=== PATIENT | male | born 1940 ===

== ENCOUNTER 2016-10-08 09:57 | Observation (INO) | payer OTHER ==
[~2016-10-08] VITALS: Ht 177.8 cm; Wt 77.4 kg
[2016-10-08] MEDS ORDERED: PRAZ1CAP10 PO (10:31)
[2016-10-08] MEDS ORDERED: ASPI81TA28 PO (10:31)
[2016-10-08] MEDS ORDERED: PREG1CAP28 PO (10:31)
[2016-10-08] MEDS ORDERED: ATV/2 PO (10:31)
[2016-10-08] MEDS ORDERED: LPT10 PO (10:31)
[2016-10-08 10:49] LABS: MEAN CELL VOLUME 91.3 fL (80-100); MEAN CORPUSCULAR HEMOGLOBIN 30.9 pg (25-34); MEAN CORPUSCULAR HGB CONC 33.8 g/dl (32-36); MEAN PLATELET VOLUME 8.4 fL (7.4-10.4); PLATELET COUNT 215 K/uL (130-400); WHITE BLOOD COUNT 5.58 K/uL (4.8-10.8)
[2016-10-08 10:56] LABS: PARTIAL THROMBOPLASTIN RATIO 1.1; PROTHROMBIN TIME (PATIENT) 11.1 SECONDS (9.0-12.0)
[2016-10-08 10:59] LABS: ALT/SGPT 28 U/L (12-78); AST/SGOT 22 U/L (15-37); BLOOD UREA NITROGEN 13 mg/dl (7-18); BUN/CREATININE RATIO 13.9 (10-20); CALCIUM 8.4 mg/dl (8.5-10.1); CARBON DIOXIDE 29 mmol/L (21-32); CHLORIDE 108 mmol/L (98-107); CREATININE 0.92 mg/dl (0.60-1.40); GLUCOSE 88 mg/dl (70-99); POTASSIUM 4.2 mmol/L (3.5-5.1); SODIUM 141 mmol/L (136-145)
[2016-10-08] MEDS ORDERED: NITROGLYCERIN OINT 2% 1GM PACKET EXT ONE (11:00)
--- NOTE | 2016-10-08 11:01 | EMERGENCY ROOM VISIT NOTE ---
History Report prepared by Remberto: Hema Pinedo Under the Supervision of: Dr. aClista Lopez D.O. First contact with patient: 10:36 Chief Complaint: CHEST PAIN Stated Complaint: CHEST PRESSURE Nursing Triage Summary: Pt daughter states patient has chest pressure, dizziness intermittently since Saturday. Went to [facility] Saturday. He was told to go to ER but did not want to. Pain not going away. Pt c/o mid and left chest pain. Denies nausea. SOB with exertion. History of Present Illness The patient is a 76 year old male who presents to the Emergency Room with complaints of intermittent left sided chest pain for the past year and a half. He currently rates his discomfort as a 3-4/10 in severity. The patient additionally states that he has been having shortness of breath which is worsened with exertion, and is relieved with laying down. The patient additionally states that he has been sweaty occasionally especially at night, and he states that he has nightmares every night. He notes that he has intermittent tingling in his fingers and his feet bilaterally, and he has been having heaviness in his head and urinary frequency. The patient has a history of a triple bypass, and then afterwards he had two stents put in place. He states that last time he saw a mainframe systems administrator was a year ago. The patient states that he has not had any recent sickness, and he has chronic low blood pressure. He states that he used to take gabapentin after the CABG for pain that was thought to be from his incision, then more recently pregabalin, and also occasionally nitroglycerine which helps. States the pregabalin hasn't helped with the pain in the last several days. Pt denies leg swelling, headache, change in vision, fevers, nausea, vomiting, diarrhea, pain with urination, and melena. No recent change in meds and no recent trauma. Pt here visiting from [place] where he lives with family. The patient's daughter was assisting with translation and history. Source of History: patient Onset: a year and a half ago Position: chest (left) Symptom Intensity: 3-4/10 Timing: intermittent Modifying Factors (Worsening): exertion Modifying Factors (Relieving): other (laying down) Associated Symptoms: + SOB Note: Associated symptoms: tingling in his fingers and feet, sweatiness Review of Systems See HPI for pertinent positives & negatives. A total of 10 systems reviewed and were otherwise negative. Past Medical & Surgical Surgical Problems: (1) History of intravascular stent placement (2) Hx of CABG Social History Smoking Status: Former Smoker Marital Status: Housing Status: lives with family Occupation Status: retired Current/Historical Medications Scheduled Aspirin (Aspirin Ec), 81 MG PO DAILY Atorvastatin (Atorvastatin Calcium), 10 MG PO DAILY Lorazepam (Ativan), 2 MG PO HS Prazosin Hcl (Prazosin), 1 MG PO DAILY Pregabalin (Lyrica), 75 MG PO BID Allergies Coded Allergies: Oxazepam (Unverified Allergy, Unknown, ., 10/08/16) Physical Exam Vital Signs Date Time Temp Pulse Resp B/P (MAP) Pulse Ox O2 Delivery O2 Flow Rate FiO2 10/08/16 13:37 74 22 95 10/08/16 13:32 68 28 96 10/08/16 13:27 69 17 93 10/08/16 13:22 68 10/08/16 13:22 79 26 96 10/08/16 13:17 74 19 96 10/08/16 13:12 58 10 94 10/08/16 13:07 55 8 95 10/08/16 13:02 56 13 95 10/08/16 13:01 95/64 10/08/16 12:57 56 15 94 10/08/16 12:52 56 18 94 10/08/16 12:47 59 16 93 10/08/16 12:42 59 19 92 10/08/16 12:37 57 13 94 10/08/16 12:32 59 19 93 10/08/16 12:02 64 20 95 10/08/16 12:00 106/69 10/08/16 11:32 71 17 95 10/08/16 11:27 70 24 96 10/08/16 11:00 100/71 10/08/16 10:57 67 13 94 10/08/16 10:27 73 13 95 10/08/16 10:21 70 10/08/16 10:11 109/69 10/08/16 10:10 99 Room Air 10/08/16 10:06 95 Room Air 10/08/16 10:01 36.5 90 17 113/76 95 Room Air Physical Exam GENERAL: alert, well appearing, well nourished, no distress, non-toxic EYE EXAM: normal conjunctiva, PERRL and EOM's grossly intact OROPHARYNX: no exudate, no erythema, lips, buccal mucosa, and tongue normal and mucous membranes are moist NECK: supple, no nuchal rigidity, no adenopathy, non-tender LUNGS: Clear to auscultation. Normal chest wall mechanics HEART: no murmurs, S1 normal and S2 normal CHEST: Mild left sided reproducible chest pain ABDOMEN: abdomen soft, non-tender, normo-active bowel sounds, no masses, no rebound or guarding. BACK: Back is symmetrical on inspection and there is no deformity, no midline tenderness, no CVA tenderness. SKIN: no rashes and no bruising UPPER EXTREMITIES: upper extremities are grossly normal. LOWER EXTREMITIES: No pitting edema. NEURO EXAM: Normal sensorium, cranial nerves II-XII grossly intact, normal speech, no gross weakness of arms, no gross weakness of legs. Gross sensation intact. Medical Decision & Procedures ER Provider Diagnostic Interpretation: Radiology results have been interpreted by the radiologist and reviewed by me. CHEST ONE VIEW PORTABLE HISTORY: 76 years-old Male chest pain COMPARISON: None available TECHNIQUE: Portable AP view of the chest FINDINGS: Cardiac silhouette is upper limits of normal. There is evidence of prior median sternotomy. There is no pneumothorax, large pleural effusion or focal airspace consolidation. There is mild left diaphragmatic elevation. Hazy subsegmental left basilar opacities suggest atelectasis. The bones appear grossly intact. IMPRESSION: Subsegmental left basilar atelectasis with otherwise unremarkable exam. The above report was generated using voice recognition software. It may contain grammatical, syntax or spelling errors. Electronically signed by: Michael Boyle M.D. 10/08/2016 11:38 AM Dictated Date/Time: 10/08/2016 11:37 AM Laboratory Results 10/08/16 10:15 10/08/16 10:15 Test 10/08/16 10:15 10/08/16 10:27 Red Blood Count 4.60 M/uL (4.7-6.1) Mean Corpuscular Volume 91.3 fL (80-100) Mean Corpuscular Hemoglobin 30.9 pg (25-34) Mean Corpuscular Hemoglobin Concent 33.8 g/dl (32-36) RDW Standard Deviation 44.9 fL (36.4-46.3) RDW Coefficient of Variation 13.4 % (11.5-14.5) Mean Platelet Volume 8.4 fL (7.4-10.4) Prothrombin Time 11.1 SECONDS (9.0-12.0) Prothromb Time International Ratio 1.0 (0.9-1.1) Activated Partial Thromboplast Time 27.8 SECONDS (21.0-31.0) Partial Thromboplastin Ratio 1.1 Anion Gap 4.0 mmol/L (3-11) Est Creatinine Clear Calc Drug Dose 72.7 ml/min Estimated GFR () 94.6 Estimated GFR (Non- 81.6 BUN/Creatinine Ratio 13.9 (10-20) Calcium Level 8.4 mg/dl (8.5-10.1) Total Bilirubin 0.8 mg/dl (0.2-1) Aspartate Amino Transf (AST/SGOT) 22 U/L (15-37) Alanine Aminotransferase (ALT/SGPT) 28 U/L (12-78) Alkaline Phosphatase 109 U/L (45-117) Total Creatine Kinase 56 U/L (39-308) Pro-B-Type Natriuretic Peptide 80 pg/ml (0-900) Total Protein 7.0 gm/dl (6.4-8.2) Albumin 3.7 gm/dl (3.4-5.0) Globulin 3.3 gm/dl (2.5-4.0) Albumin/Globulin Ratio 1.1 (0.9-2) Bedside Troponin I < 0.030 ng/ml (0-0.045) Laboratory results per my review. Medications Administered Medications (Trade) Dose Ordered Sig/Kristy Route Start Time Stop Time Status Last Admin Dose Admin Nitroglycerin (Nitroglycerin 2% Oint) 1 inch NOW ONCE EXT 10/08/16 11:00 10/08/16 11:01 DC 10/08/16 11:50 1 INCH Sodium Chloride 1,000 ml @ 75 mls/hr [id number] IV 10/08/16 13:31 11/07/16 13:30 10/08/16 13:31 75 MLS/HR ECG Indication: chest pain Rate (beats per minute): 68 Rhythm: normal sinus Findings: no acute ischemic change, left axis deviation, no ectopy, other ( Normal intervals) ED Course 1036: The patient was evaluated in room C7. A complete history and physical exam was performed. 1100: Nitroglycerine 2% Oint 1 inch EXT 1221: I reevaluated the patient, and he states that the pain is better. He is comfortable with the treatment plan. 1233: I reviewed the patient's case with Dr. Guerra. He will evaluate the patient for further management. Medical Decision Differential diagnosis: Etiologies such as cardiac ischemia, aortic dissection, pulmonary embolism, pneumonia, pneumothorax, musculoskeletal, infections, pericarditis, myocarditis , esophageal rupture, gastrointestinal, as well as others were entertained. Given description of symptoms, concern for underlying angina. No significant GERD hx, no trauma, no change in activity. No improvement in pain with pregabalin, but some relief with nitro. Pt with accompanying concerning symptoms and all symptoms worse with exertion. Pt with known hx of CAD. Doubt PE, dissection, aaa, tamponade, effusion, infiltrate, pneumothorax, perf, GI bleed. First troponin negative and ekg without acute ischemic changes. HEART score 6 Medication Reconcilliation Current Medication List: was personally reviewed by me Blood Pressure Screening Patient's blood pressure: Normal blood pressure Consults Time Called: 1221 Consulting Physician: Dr. Guerra Returned Call: 1233 I reviewed the patient's case with Dr. Guerra. He will evaluate the patient for further management. Impression Primary Impression: Angina pectoris Additional Impressions: Chest pain Dyspnea on exertion Scribe Attestation The scribe's documentation has been prepared under my direction and personally reviewed by me in its entirety. I confirm that the note above accurately reflects all work, treatment, procedures, and medical decision making performed by me. Departure Information Dispostion Being Evaluated By Hospitalist Referrals No Doctor, Assigned (PCP) Patient Instructions My [facility] Problem Qualifiers Additional Impressions: Chest pain Chest pain type: chest pain due to myocardial ischemia Ischemic chest pain type: stable angina pectoris Qualified Codes: I20.8 - Other forms of angina pectoris
[2016-10-08 11:04] LABS: ALB/GLOB RATIO 1.1 (0.9-2); ALKALINE PHOSPHATASE 109 U/L (45-117)
--- NOTE | 2016-10-08 11:40 | DIAGNOSTIC IMAGING REPORT ---
CHEST ONE VIEW PORTABLE HISTORY: 76 years-old Male chest pain COMPARISON: None available TECHNIQUE: Portable AP view of the chest FINDINGS: Cardiac silhouette is upper limits of normal. There is evidence of prior median sternotomy. There is no pneumothorax, large pleural effusion or focal airspace consolidation. There is mild left diaphragmatic elevation. Hazy subsegmental left basilar opacities suggest atelectasis. The bones appear grossly intact. IMPRESSION: Subsegmental left basilar atelectasis with otherwise unremarkable exam. The above report was generated using voice recognition software. It may contain grammatical, syntax or spelling errors. Electronically signed by: Michael Boyle M.D. 10/08/2016 11:38 AM Dictated Date/Time: 10/08/2016 11:37 AM
[2016-10-08] MEDS: SODIUM CHLORIDE 0.9% 1000ML 1,000 ML IV SCH (13:31)
--- NOTE | 2016-10-08 13:39 | History and Physical ---
History & Physical Date & Time of Service: Oct 08, 2016 at 13:39 Chief Complaint: Chest Pressure Primary Care Physician: No Doctor, Assigned History of Present Illness Source: patient, family Patient is a 76 yr male with PMH of CAGB S/P stents X 2, Insomnia presents for evaluation of intermittent chest pain. Patient and her daughter reports that chest pain has been going on since last 11/2 years. Chest pain has been worsening lately. Pain is left sided, pressure like, intermittent, increases with exertion and decreases with rest, 3/10 intensity, non radiating. Associated with SOB on exertion and I have heaviness in my head". Reports chest pain got worse last Saturday but was reluctant to come to ED. Chest improved with NTG given in ED. Denies orthopnea, PND, leg swelling, abd pain, diarrhea, fever , chills, cough. Reports having a nightmares lately. Past Medical/Surgical History H/O CAD S/P CABG, stents X2 Family History Reviewed Social History Smoking Status: Former Smoker Alcohol Use: none Marital Status: Occupational Status: retired Allergies Coded Allergies: Oxazepam (Unverified Allergy, Unknown, ., 10/08/16) Home Medications Scheduled Aspirin (Aspirin Ec), 81 MG PO DAILY Atorvastatin (Atorvastatin Calcium), 10 MG PO DAILY Lorazepam (Ativan), 2 MG PO HS Prazosin Hcl (Prazosin), 1 MG PO DAILY Pregabalin (Lyrica), 75 MG PO BID Review of Systems See HPI for pertinent positives & negatives. A total of 10 systems reviewed and were otherwise negative. Physical Exam Vital Signs Date Time Temp Pulse Resp B/P (MAP) Pulse Ox O2 Delivery O2 Flow Rate FiO2 10/08/16 13:22 68 10/08/16 12:32 59 19 93 10/08/16 12:02 64 20 95 10/08/16 12:00 106/69 10/08/16 11:32 71 17 95 10/08/16 11:27 70 24 96 10/08/16 11:00 100/71 10/08/16 10:57 67 13 94 10/08/16 10:27 73 13 95 10/08/16 10:21 70 10/08/16 10:11 109/69 10/08/16 10:10 99 Room Air 10/08/16 10:06 95 Room Air 10/08/16 10:01 36.5 90 17 113/76 95 Room Air General Appearance: WD/WN, no apparent distress Head: normocephalic, atraumatic Eyes: normal inspection, PERRL, EOMI ENT: normal ENT inspection, hearing grossly normal Neck: supple, trachea midline Respiratory/Chest: chest non-tender, lungs clear, normal breath sounds, no respiratory distress, no accessory muscle use Cardiovascular: regular rate, rhythm, no edema, no murmur Abdomen/GI: normal bowel sounds, non tender, soft Back: normal inspection Extremities/Musculoskelatal: normal inspection, no pedal edema Neurologic/Psych: bricklayer paving brick II-XII nml as tested, no motor/sensory deficits, alert, normal mood/affect, normal reflexes, oriented x 3 Skin: normal color, warm/dry Diagnostics Laboratory Results Results Past 24 Hours Test 10/08/16 10:15 10/08/16 10:27 Range/Units White Blood Count 5.58 4.8-10.8 K/uL Red Blood Count 4.60 4.7-6.1 M/uL Hemoglobin 14.2 14.0-18.0 g/dL Hematocrit 42.0 42-52 % Mean Corpuscular Volume 91.3 80-100 fL Mean Corpuscular Hemoglobin 30.9 25-34 pg Mean Corpuscular Hemoglobin Concent 33.8 32-36 g/dl RDW Standard Deviation 44.9 36.4-46.3 fL RDW Coefficient of Variation 13.4 11.5-14.5 % Platelet Count 215 130-400 K/uL Mean Platelet Volume 8.4 7.4-10.4 fL Prothrombin Time 11.1 9.0-12.0 SECONDS Prothromb Time International Ratio 1.0 0.9-1.1 Activated Partial Thromboplast Time 27.8 21.0-31.0 SECONDS Partial Thromboplastin Ratio 1.1 Sodium Level 141 136-145 mmol/L Potassium Level 4.2 3.5-5.1 mmol/L Chloride Level 108 98-107 mmol/L Carbon Dioxide Level 29 21-32 mmol/L Anion Gap 4.0 3-11 mmol/L Blood Urea Nitrogen 13 7-18 mg/dl Creatinine 0.92 0.60-1.40 mg/dl Est Creatinine Clear Calc Drug Dose 72.7 ml/min Estimated GFR () 94.6 Estimated GFR (Non- 81.6 BUN/Creatinine Ratio 13.9 10-20 Random Glucose 88 70-99 mg/dl Calcium Level 8.4 8.5-10.1 mg/dl Total Bilirubin 0.8 0.2-1 mg/dl Aspartate Amino Transf (AST/SGOT) 22 15-37 U/L Alanine Aminotransferase (ALT/SGPT) 28 12-78 U/L Alkaline Phosphatase 109 45-117 U/L Total Creatine Kinase 56 39-308 U/L Creatine Kinase MB < 0.5 0.5-3.6 ng/ml Creatine Kinase MB Ratio 0-3.0 Pro-B-Type Natriuretic Peptide 80 0-900 pg/ml Total Protein 7.0 6.4-8.2 gm/dl Albumin 3.7 3.4-5.0 gm/dl Globulin 3.3 2.5-4.0 gm/dl Albumin/Globulin Ratio 1.1 0.9-2 Bedside Troponin I < 0.030 0-0.045 ng/ml Diagnostic Radiology CXR: Subsegmental left basilar atelectasis with otherwise unremarkable exam. EKG EKG:NSR, Low voltage, LAFB Impression Assessment and Plan Chest Pain: R/O ACS Risk factors: H/O CAD S/P CABG, Stents X2, Former tobacco use disorder Initial troponin:Negative EKG shows:No acute signs of Ischemia CXR: Unremarkable Last ECHO in 2009: EF:45-50% Trend serial cardiac enzymes, repeat EKG, fasting lipid panel in AM Continue Aspirin, statins Oxygen PRN Update ECHO Cardiology consulted H/O Insomnia: continue home meds Former Tobacco use disorder DVT Px: SCDs Disposition: Monitor in Tele VTE Prophylaxis VTE Risk Assessment Done? Y/N: Yes Risk Level: Low
[2016-10-08] MEDS ORDERED: ONDANSETRON INJ 2 MG/ML 2 ML VIAL IV PRN (13:45)
[2016-10-08] MEDS ORDERED: ACETAMINOPHEN 325 MG TAB PO PRN (13:45)
[2016-10-08] MEDS ORDERED: IV FLUIDS COMPLETED PRN (14:00)
[2016-10-08] MEDS ORDERED: ASPIRIN 81 MG CHEW PO STA (14:28)
[2016-10-08 15:21] VITALS: BP 104/65; PULSE 78; TEMP 36.4; O2SAT 94; Ht 177.8 cm; Wt 77.4 kg
[2016-10-08 16:00] VITALS: O2SAT 94
[2016-10-08] MEDS ORDERED: PNEUMOCOCCAL ADMINISTRATION CHARGE ONE (16:00)
[2016-10-08] MEDS ORDERED: PNEUMOCOCCAL POLYSACCHARIDES 25 MCG/0.5 ML VIAL/SYR IM. ONE (16:00)
--- NOTE | 2016-10-08 17:39 | CARDIOLOGY CONSULTATION ---
DATE OF CONSULTATION: 10/08/2016 REFERRING PHYSICIAN: Dr. Guerra. REASON FOR CONSULTATION: Chest pain. HISTORY OF PRESENT ILLNESS: Mr. Miller is a 76-year-old gentleman presents to the ER with intermittent chest discomfort for more than 1 year. The history was obtained through universal gis consultant on iPad at bedside. The patient states he has had chest pain since his heart surgery more than 14 years ago. He notes pain primarily at night. He describes a pressure and heaviness. He can reproduce his pain with exertion and activity at times. There is a chart history of shortness of breath with exertion. 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 Notes significant nightmares as well. Typically follows with a pay agent in [place], which is where his says permanent residence. Other cardiac procedures and testing had been performed in [facility] as well. Currently, the patient is chest pain free. His initial cardiac enzymes are negative. He states most recent stress test performed in [place] more than 1 year ago was reportedly normal. He states stents were implanted approximately 5 years after his initial bypass surgery; however, they did not change his chronic chest discomfort. Per review of records, it appears that bypass surgery was performed in 2003 with a BOO to the LAD and SVG to the mid LAD as well as an SVG to first diagonal branch vessel as well as an SVG to a ramus intermedius. According a catheterization which is not dated, but appears to have occurred after his surgery, his SVG to his OM/ramus was patent. He states there was an SVG to OM2 which was also patent and there is a stent in OM2 which is patent. The BOO was occluded and the EF was 50%. Currently, patient is resting comfortably without complaints. REVIEW OF SYSTEMS: The pertinent positives are noted per HPI. Also, intermittent diaphoresis and dyspnea reported. A comprehensive 10-system review is otherwise negative. PAST MEDICAL HISTORY: 1. Coronary artery disease with prior coronary artery bypass grafting x4. 2. PCI to the OM2. 3. Dyslipidemia. 4. Chronic hypotension. 5. GERD. PAST SURGICAL HISTORY: 1. Coronary stenting. 2. Coronary bypass grafting x4 - BOO to LAD (occluded) - SVG to apical LAD - SVG to OM - SVG to ramus or diagonal (not clear per review of records) SOCIAL HISTORY: Former tobacco abuse. He is here with his daughter who is a philosophy professor. ALLERGIES: OXAZEPAM. OUTPATIENT MEDICATIONS: 1. Aspirin 81 mg daily. 2. Atorvastatin 10 mg daily. 3. Lorazepam 2 mg at bedtime. 4. Prazosin 1 mg daily. 5. Lyrica 75 mg twice daily. IMAGING DATA: ECG on admission - normal sinus rhythm with low voltage QRS, left anterior fascicular block, R prime in V1. No significant ST changes. Chest x-ray on admission: Subsegmental left basilar atelectasis, otherwise normal exam. LABORATORY DATA: Cardiac enzymes are negative x2 sets. Sodium 141, potassium 4.2, chloride 108, CO2 is 29, BUN is 13, and creatinine is 0.92. White blood cell count 5.58, hemoglobin is 14.2, platelet count is 215. INR is 1.0. Telemetry demonstrates sinus rhythm. PHYSICAL EXAMINATION: VITAL SIGNS: Temperature 36.4 degrees Celsius, pulse 78 beats per minute and regular, respiratory rate is 18 breaths per minute, blood pressure 104/65, and SA02 is 94% on room air. GENERAL: NAD, awake, alert and oriented x3. THROAT: His mucous membranes are moist. No scleral icterus. Conjunctivae pink. NECK: Supple without JVD or HJR. No carotid bruit. HEART: Regular with a normal S1 and S2, no murmur, rub, or gallop. LUNGS: Clear without rales, rhonchi or wheeze. ABDOMEN: Soft, nontender. No rebound or guarding. Normal bowel sounds. EXTREMITIES: Warm and dry. There is no clubbing, cyanosis, or edema. NEUROLOGIC: Demonstrates no focal motor deficit. FINAL IMPRESSION: 1. A 76-year-old male with history of prior coronary artery bypass grafting x4 as well as obtuse marginal stenting, presents with chronic atypical resting chest discomfort and intermittent exertional chest discomfor. Initial evaluation including cardiac enzymes and electrocardiogram are within normal limits. 2. Dyslipidemia, tolerating low dose statin therapy. 3. Chronic borderline hypotension. 4. History of mildly reduced ejection fraction per review of records at 40-45% - patient appears compensated. PLAN AND RECOMMENDATIONS: Cardiac enzymes will be trended x3 sets. A complete resting 2D transthoracic echo will be performed to assess baseline systolic function, valvular integrity, as well as diastology. Tentative plan for dobutamine stress echocardiography in the a.m. if initial cardiac testing is within normal limits. Current cardiovascular medications will be continued as previously ordered. Will consider addition of low dose beta-nilsa therapy in the future. Thank you for allowing me to take part in the care of your patient. AGUSTÍN
[2016-10-08] MEDS: NITROGLYCERIN OINT 2% 1GM PACKET EXT SCH (17:55)
[2016-10-08 20:00] VITALS: BP 103/66; PULSE 61; TEMP 36.8; O2SAT 96
[2016-10-08 20:30] VITALS: O2SAT 96
[2016-10-08] MEDS: PREGABALIN 75 MG CAP PO SCH (20:49)
[2016-10-08] MEDS: LORAZEPAM 2 MG TAB PO SCH (20:49)
[2016-10-08] MEDS ORDERED: NURSING DECISION MEDICATION ORDER SCH (21:45)
[2016-10-08] MEDS ORDERED: COUGH DROP (SUGAR FREE) LOZ 24 LOZ/1 BOX PO PRN (21:45)
[2016-10-08 22:49] VITALS: BP 111/72; PULSE 60; TEMP 36.4; O2SAT 94
[2016-10-09 00:05] VITALS: O2SAT 94
[2016-10-09] MEDS ORDERED: NURSING DECISION MEDICATION ORDER SCH (04:00)
[2016-10-09 04:27] VITALS: BP 106/68; PULSE 60; TEMP 36.3; O2SAT 94
[2016-10-09] MEDS: SODIUM CHLORIDE 0.9% 1000ML 1,000 ML IV SCH ×2 (04:27→20:00)
[2016-10-09] MEDS: NITROGLYCERIN OINT 2% 1GM PACKET EXT SCH ×4 (06:15→18:00)
[2016-10-09 07:28] VITALS: BP 100/70; PULSE 61; TEMP 36.3; O2SAT 97
[2016-10-09 07:36] LABS: BASO % 0.2 %; BASO ABS # 0.01 K/uL (0-0.2); COMPLETE YES; EOS % 1.6 %; HEMATOCRIT 42.6 % (42-52); IG% 0.2 %; LYMPH % 38.2 %; LYMPH ABS # 2.45 K/uL (1.2-3.4); MEAN CELL VOLUME 92.4 fL (80-100); MEAN CORPUSCULAR HEMOGLOBIN 29.9 pg (25-34); MEAN CORPUSCULAR HGB CONC 32.4 g/dl (32-36); MEAN PLATELET VOLUME 8.2 fL (7.4-10.4); MONO % 10.1 %; NEUT % 49.7 %; PLATELET COUNT 211 K/uL (130-400); RED BLOOD COUNT 4.61 M/uL (4.7-6.1); WHITE BLOOD COUNT 6.41 K/uL (4.8-10.8)
[2016-10-09] MEDS: PREGABALIN 75 MG CAP PO SCH ×2 (07:49→21:29)
[2016-10-09 08:10] LABS: BUN/CREATININE RATIO 14.8 (10-20); CALCIUM 8.3 mg/dl (8.5-10.1); CREATININE 0.77 mg/dl (0.60-1.40); POTASSIUM 4.1 mmol/L (3.5-5.1)
[2016-10-09 08:13] LABS: ESTIMATED AVERAGE GLUCOSE 123 mg/dl; HA1C FLAG Normal (Normal)
[2016-10-09 08:20] LABS: CHOLESTEROL/HDL RATIO 2.9; THYROID STIMULATING HORMONE 2.98 uIu/ml (0.300-4.500)
--- NOTE | 2016-10-09 08:41 | Progress Note ---
Internal Med Progress Note Date of Service: Oct 09, 2016. Provider Documentation: SUBJECTIVE: Seen and examined at bedside Has chronic left sided pressure like sensation Denies SOB, dizziness, palpitations, nausea Offers no other complaints Planned for stress ECHO today OBJECTIVE: Vital Signs-as noted below Physical Exam: Vitals signs as noted above General Appearance:Moderately built and nourished Head: normocephalic, Atraumatic Eyes: normal inspection, EOMI, PERRL Neck: supple, Trachea midline Respiratory/Chest: Normal breath sounds, CTA Cardiovascular: S1, S2, No murmur Abdomen/GI:Soft, Non tender, Bowel sounds present Extremities/Musculoskelatal:normal inspection, no edema Neurologic/Psych:grossly no focal neurological deficits Skin: normal color, warm Lab data as noted below. ASSESSMENT & PLAN: Chest Pain: R/O ACS Risk factors: H/O CAD S/P CABG, Stents, Former tobacco use disorder Cardiac enzymes:Negative EKG: No acute signs of Ischemia CXR: Unremarkable Last ECHO in 2009: EF:45-50% Resting ECHO:pending Continue Aspirin, statins Appreciate Cardiology Input Planned for Stress test today H/O CAD S/P CABG: As above May need to add a beta nilsa and increase statin dosage prior to discharge A1C:5.9 Lipid panel, TSH:pending H/O Insomnia: continue home meds Former Tobacco use disorder DVT Px: SCDs Vital Signs: Date Time Temp Pulse Resp B/P (MAP) Pulse Ox O2 Delivery O2 Flow Rate FiO2 10/09/16 07:28 36.3 61 16 100/70 (80) 97 Room Air 10/09/16 04:27 36.3 60 18 106/68 (81) 94 Room Air 10/09/16 04:10 Room Air 10/09/16 00:05 94 Room Air 10/08/16 22:49 36.4 60 17 111/72 (85) 94 Room Air 10/08/16 20:30 96 Room Air 10/08/16 20:00 36.8 61 19 103/66 (78) 96 Room Air 10/08/16 16:00 94 Room Air 10/08/16 15:21 36.4 78 18 104/65 94 Room Air 10/08/16 14:51 36.5 71 15 93/63 94 10/08/16 14:42 71 15 94 10/08/16 14:12 67 15 94 10/08/16 14:00 93/63 10/08/16 13:42 62 18 94 10/08/16 13:37 74 22 95 10/08/16 13:32 68 28 96 10/08/16 13:27 69 17 93 10/08/16 13:22 68 10/08/16 13:22 79 26 96 10/08/16 13:17 74 19 96 10/08/16 13:12 58 10 94 10/08/16 13:07 55 8 95 10/08/16 13:02 56 13 95 10/08/16 13:01 95/64 10/08/16 12:57 56 15 94 10/08/16 12:52 56 18 94 10/08/16 12:47 59 16 93 10/08/16 12:42 59 19 92 10/08/16 12:37 57 13 94 10/08/16 12:32 59 19 93 10/08/16 12:02 64 20 95 10/08/16 12:00 106/69 10/08/16 11:32 71 17 95 10/08/16 11:27 70 24 96 10/08/16 11:00 100/71 10/08/16 10:57 67 13 94 10/08/16 10:27 73 13 95 10/08/16 10:21 70 10/08/16 10:11 109/69 10/08/16 10:10 99 Room Air 10/08/16 10:06 95 Room Air 10/08/16 10:01 36.5 90 17 113/76 95 Room Air Lab Results: Results Past 24 Hours Test 10/08/16 10:15 10/08/16 10:27 10/08/16 13:35 10/08/16 14:37 Range/Units White Blood Count 5.58 4.8-10.8 K/uL Red Blood Count 4.60 4.7-6.1 M/uL Hemoglobin 14.2 14.0-18.0 g/dL Hematocrit 42.0 42-52 % Mean Corpuscular Volume 91.3 80-100 fL Mean Corpuscular Hemoglobin 30.9 25-34 pg Mean Corpuscular Hemoglobin Concent 33.8 32-36 g/dl RDW Standard Deviation 44.9 36.4-46.3 fL RDW Coefficient of Variation 13.4 11.5-14.5 % Platelet Count 215 130-400 K/uL Mean Platelet Volume 8.4 7.4-10.4 fL Prothrombin Time 11.1 9.0-12.0 SECONDS Prothromb Time International Ratio 1.0 0.9-1.1 Activated Partial Thromboplast Time 27.8 21.0-31.0 SECONDS Partial Thromboplastin Ratio 1.1 Sodium Level 141 136-145 mmol/L Potassium Level 4.2 3.5-5.1 mmol/L Chloride Level 108 98-107 mmol/L Carbon Dioxide Level 29 21-32 mmol/L Anion Gap 4.0 3-11 mmol/L Blood Urea Nitrogen 13 7-18 mg/dl Creatinine 0.92 0.60-1.40 mg/dl Est Creatinine Clear Calc Drug Dose 72.7 ml/min Estimated GFR () 94.6 Estimated GFR (Non- 81.6 BUN/Creatinine Ratio 13.9 10-20 Random Glucose 88 70-99 mg/dl Calcium Level 8.4 8.5-10.1 mg/dl Total Bilirubin 0.8 0.2-1 mg/dl Aspartate Amino Transf (AST/SGOT) 22 15-37 U/L Alanine Aminotransferase (ALT/SGPT) 28 12-78 U/L Alkaline Phosphatase 109 45-117 U/L Total Creatine Kinase 56 39-308 U/L Creatine Kinase MB < 0.5 < 0.5 0.5-3.6 ng/ml Creatine Kinase MB Ratio 0-3.0 Pro-B-Type Natriuretic Peptide 80 0-900 pg/ml Total Protein 7.0 6.4-8.2 gm/dl Albumin 3.7 3.4-5.0 gm/dl Globulin 3.3 2.5-4.0 gm/dl Albumin/Globulin Ratio 1.1 0.9-2 Bedside Troponin I < 0.030 0-0.045 ng/ml Troponin I < 0.015 0-0.045 ng/ml Test 10/08/16 19:26 10/09/16 01:35 10/09/16 01:52 10/09/16 07:23 Range/Units Creatine Kinase MB < 0.5 < 0.5 < 0.5 0.5-3.6 ng/ml Creatine Kinase MB Ratio 0-3.0 Troponin I < 0.015 < 0.015 < 0.015 0-0.045 ng/ml White Blood Count 6.41 4.8-10.8 K/uL Red Blood Count 4.61 4.7-6.1 M/uL Hemoglobin 13.8 14.0-18.0 g/dL Hematocrit 42.6 42-52 % Mean Corpuscular Volume 92.4 80-100 fL Mean Corpuscular Hemoglobin 29.9 25-34 pg Mean Corpuscular Hemoglobin Concent 32.4 32-36 g/dl Platelet Count 211 130-400 K/uL Mean Platelet Volume 8.2 7.4-10.4 fL Neutrophils (%) (Auto) 49.7 % Lymphocytes (%) (Auto) 38.2 % Monocytes (%) (Auto) 10.1 % Eosinophils (%) (Auto) 1.6 % Basophils (%) (Auto) 0.2 % Neutrophils # (Auto) 3.19 1.4-6.5 K/uL Lymphocytes # (Auto) 2.45 1.2-3.4 K/uL Monocytes # (Auto) 0.65 0.11-0.59 K/uL Eosinophils # (Auto) 0.10 0-0.5 K/uL Basophils # (Auto) 0.01 0-0.2 K/uL RDW Standard Deviation 45.2 36.4-46.3 fL RDW Coefficient of Variation 13.4 11.5-14.5 % Immature Granulocyte % (Auto) 0.2 % Immature Granulocyte # (Auto) 0.01 0.00-0.02 K/uL Sodium Level 143 136-145 mmol/L Potassium Level 4.1 3.5-5.1 mmol/L Chloride Level 110 98-107 mmol/L Carbon Dioxide Level 27 21-32 mmol/L Anion Gap 6.0 3-11 mmol/L Blood Urea Nitrogen 11 7-18 mg/dl Creatinine 0.77 0.60-1.40 mg/dl Est Creatinine Clear Calc Drug Dose 86.9 ml/min Estimated GFR () 103.6 Estimated GFR (Non- 89.4 BUN/Creatinine Ratio 14.8 10-20 Random Glucose 85 70-99 mg/dl Estimated Average Glucose 123 mg/dl Hemoglobin A1c 5.9 4.5-5.6 % Calcium Level 8.3 8.5-10.1 mg/dl Triglycerides Level 101 0-150 mg/dl Cholesterol Level 149 0-200 mg/dl HDL Cholesterol 52 mg/dl LDL Cholesterol, Calculated 77 mg/dl VLDL Cholesterol, Calculated 20 mg/dl Cholesterol/HDL Ratio 2.9 Thyroid Stimulating Hormone (TSH) 2.980 0.300-4.500 uIu/ml
[2016-10-09] MEDS ORDERED: PRAZOSIN HCL 1 MG CAP PO SCH (09:00)
[2016-10-09] MEDS ORDERED: ASPIRIN 81 MG ECTAB PO SCH ×2 (09:00→21:00)
[2016-10-09] MEDS ORDERED: ATORVASTATIN 10 MG TAB PO SCH (09:00)
[2016-10-09] MEDS ORDERED: DOBUTamine HCL 12.5 MG/ML 20 ML VIAL ONE (11:00)
[2016-10-09] MEDS ORDERED: METOPROLOL TARTRATE 1 MG/ML VIAL ONE (11:00)
[2016-10-09] MEDS ORDERED: ATROPINE SULFATE 0.1 MG/ML 5ML SYR ONE (11:00)
[2016-10-09] MEDS ORDERED: PERFLUTREN LIPID MICROSPHERE (DEFINITY) IV ONE (11:19)
--- NOTE | 2016-10-09 12:41 | Cardiology Follow-Up ---
Subjective General Date of Service: Oct 09, 2016. Pt evaluation today including: conversation w/ patient, conversation w/ family , physical exam, chart review, lab review, review of studies, review of inpatient medication list History of Present Illness The patient is a 76 year old male seen in follow up after stress testing. Stress test borderline positive for inducible ischemia. Patient reproduced anginal symptoms with exercise. Currently pain-free. See stress report for details. Allergies Coded Allergies: Oxazepam (Unverified Allergy, Unknown, ., 10/08/16) Social History Smoking Status: Former Smoker Hx Alcohol Use - Type And Amou: No Hx Substance Use - Type And Am: No Problem List Medical Problems: (1) Angina pectoris Status: Acute Review of Systems Respiratory: + dyspnea on exertion, No cough, No sputum, No wheezing, No shortness of breath, No dyspnea at rest, No hemoptysis Cardiac: + chest pain, No orthopnea, No PND, No edema, No claudication, No palpitations Physical Exam Vital Signs Last Vital Signs Documentation Date Time Temp Pulse Resp B/P (MAP) Pulse Ox O2 Delivery O2 Flow Rate FiO2 10/09/16 08:00 Room Air 10/09/16 07:28 36.3 61 16 100/70 (80) 97 Physical Exam Constitutional: General Apperance: heathly-appearing Level of Distress: NAD Head: normocephalic, atraumatic ENMT: normal ENT inspection Lungs: Auscultation: breath sounds normal, no wheezing, no rales/crackles, no rhonchi Cardiovascular: Heart Auscultation: RRR, normal S1, normal S2, no murmurs Abdomen: Bowel Sounds: normal Inspection & Palpation: soft, non-distended, no tenderness, guarding & rebound, no masses Liver: non-tender Musculoskeletal: normal, normal strength (5/5 throughout) Extremities: no cyanosis, no edema, no clubbing, no ulcers Neurologic: Gait & Station: pertinent finding (no focal motor deficit.) Cranial Nerves: grossly intact Assessment and Plan Assessment and Plan FINAL IMPRESSION: 1. Exercise stress echo borderline positive for inducible ischemia with reproduction of anginal symptoms with exercise. -No regional wall motion abnormalities identified on technically limited study -LV function did not improve post exercise 2. History of prior coronary artery bypass grafting x4 as well as obtuse marginal stenting -BOO occlusion per prior cath report 3. Dyslipidemia, tolerating low dose statin therapy. 4. Chronic borderline hypotension. 5. History of mildly reduced ejection fraction per review of records at 40-45% - patient appears compensated. PLAN AND RECOMMENDATIONS: I had a long discussion with the patient and his daughter regarding further evaluation of his anginal symptoms. Recommend cardiac catheterization with coronary and bypass graft angiography. But the patient and his daughter are agreeable. Will add low-dose beta nisla and titrate atorvastatin to 40 mg daily. Aspirin will be continued as previously ordered. Case discussed with informatics consultant at [facility]. Patient accepted for transfer. Laboratory Results Last 24 Hours Test 10/08/16 13:35 10/08/16 14:37 10/08/16 19:26 10/09/16 01:35 Creatine Kinase MB Ratio Creatine Kinase MB < 0.5 ng/ml < 0.5 ng/ml Troponin I < 0.015 ng/ml < 0.015 ng/ml Test 10/09/16 01:52 10/09/16 07:23 Creatine Kinase MB < 0.5 ng/ml < 0.5 ng/ml Troponin I < 0.015 ng/ml < 0.015 ng/ml White Blood Count 6.41 K/uL Red Blood Count 4.61 M/uL Hemoglobin 13.8 g/dL Hematocrit 42.6 % Mean Corpuscular Volume 92.4 fL Mean Corpuscular Hemoglobin 29.9 pg Mean Corpuscular Hemoglobin Concent 32.4 g/dl Platelet Count 211 K/uL Mean Platelet Volume 8.2 fL Neutrophils (%) (Auto) 49.7 % Lymphocytes (%) (Auto) 38.2 % Monocytes (%) (Auto) 10.1 % Eosinophils (%) (Auto) 1.6 % Basophils (%) (Auto) 0.2 % Neutrophils # (Auto) 3.19 K/uL Lymphocytes # (Auto) 2.45 K/uL Monocytes # (Auto) 0.65 K/uL Eosinophils # (Auto) 0.10 K/uL Basophils # (Auto) 0.01 K/uL RDW Standard Deviation 45.2 fL RDW Coefficient of Variation 13.4 % Immature Granulocyte % (Auto) 0.2 % Immature Granulocyte # (Auto) 0.01 K/uL Sodium Level 143 mmol/L Potassium Level 4.1 mmol/L Chloride Level 110 mmol/L Carbon Dioxide Level 27 mmol/L Anion Gap 6.0 mmol/L Blood Urea Nitrogen 11 mg/dl Creatinine 0.77 mg/dl Est Creatinine Clear Calc Drug Dose 86.9 ml/min Estimated GFR () 103.6 Estimated GFR (Non- 89.4 BUN/Creatinine Ratio 14.8 Random Glucose 85 mg/dl Estimated Average Glucose 123 mg/dl Hemoglobin A1c 5.9 % Calcium Level 8.3 mg/dl Creatine Kinase MB Ratio Triglycerides Level 101 mg/dl Cholesterol Level 149 mg/dl HDL Cholesterol 52 mg/dl LDL Cholesterol, Calculated 77 mg/dl VLDL Cholesterol, Calculated 20 mg/dl Cholesterol/HDL Ratio 2.9 Thyroid Stimulating Hormone (TSH) 2.980 uIu/ml
--- NOTE | 2016-10-09 14:41 | EXERCISE STRESS ECHO ---
*NOTICE TO RECEIVING REPUBLICAN AGENCY This information is strictly Confidential and protected under [place] law. [place] law prohibits you from making any further disclosure of this information unless further disclosure is expressly permitted by the written consent of the person to whom it pertains or is authorized by law. A general authorization for the release of medical or other information is not sufficient for this purpose. Hospital accepts no responsibility if the information is made available to any other person, INCLUDING THE PATIENT. Interpretation Summary * Name: TONYA STEVENSON Study Date: 10/09/2016 09:58 AM BP: 96/71 mmHg * Patient Location: [facility] HR: 73 * : 1940 (M/d/yyyy) Gender: Male Height: 70 in * Age: 76 yrs Ethnicity: DC Weight: 170 lb * Ordering Physician: James Hill * Referring Physician: Lai Dumont * Performed By: Jana Chapman RCS * * Reason For Study: CHEST PAIN * BSA: 1.9 m2 * Technically difficult and limited study with poor acoustic apical stress images. * Exercise stress echo is borderline positive for inducible ischemia. * Left ventricular function remained unchanged with stress with reproduction of anginal symptoms at low level of exercise. * -- Conclusions -- * Ejection Fraction = 50-55%. * There is mild concentric left ventricular hypertrophy. * No significant valvular pathology. Procedure Details * ECHOEX, CPT #[id number] * ECHO COLOR FLOW, CPT #[id number] * ECHO DOPPLER, CPT #[id number] * The study was technically difficult with many images being suboptimal in quality. * A contrast injection of Definity was performed to improve assessment of LV function. * Contrast was injected into an intravenous site in the right arm. * One vial of Definity ultrasound contrast was diluted in normal saline to a total volume of 10 ml. A total of '5' ml of solution was administered during imaging. * Lot # [id number] of Definity utilized for procedure. * Expiration date OCT 05. * The attending nurse who injected the contrast agent was OCTAVIANO MCKNIGHT CPL, RN. Left Ventricle * The left ventricle is normal in size. * There is mild concentric left ventricular hypertrophy. * Ejection Fraction = 50-55%. * There is borderline global hypokinesis of the left ventricle. Atria * The left atrium is mildly dilated. * Right atrial size is normal. * A patent foramen ovale is suspected. Mitral Valve * The mitral valve anatomy is normal. * There is no mitral valve stenosis. * Significant mitral regurgitation is absent. Tricuspid Valve * The tricuspid valve anatomy is normal. * There is no tricuspid stenosis. * There is trace tricuspid regurgitation. Aortic Valve * The aortic valve is not well visualized. * No hemodynamically significant valvular aortic stenosis. * No aortic regurgitation is present. Pulmonic Valve * The pulmonary valve is inadequately visualized, but the Doppler data is adequate for interpretation. * Trace pulmonic valvular regurgitation. Great Vessels * The aortic root is normal size. Pericardium * There is no pericardial effusion. Stress Parameters * The stress portion of this study was personally supervised by the undersigned interpreting physician. * Rest heart rate was '73' BPM. * Rest blood pressure was '96/71' * Maximum heart rate was 86 % of maximum age-predicted heart rate. * Maximum blood pressure was '125/78' * Maximum heart rate achieved was 127 bpm. * Total exercise time was '04:01' * Maximum exercise MET level achieved was '5.80' METS * Maximum treadmill speed was '2.50' miles per hour. * Maximum treadmill elevation was '12.00'% grade. MMode 2D Measurements and Calculations IVSd 1.2 cm IVSs 1.4 cm LVIDd 4.5 cm LVIDs 3.2 cm LVPWd 1.2 cm LVPWs 1.3 cm IVS/LVPW 0.98 FS 28.6 % EDV(Teich) 91.4 ml ESV(Teich) 40.9 ml EF(Teich) 55.3 % EDV(cubed) 89.8 ml ESV(cubed) 32.7 ml EF(cubed) 63.6 % % IVS thick 23.2 % % LVPW thick 10.8 % LV mass(C)d 187.5 grams LV mass(C)dI 96.3 grams/m\S\2 LV mass(C)s 145.4 grams LV mass(C)sI 74.6 grams/m\S\2 SV(Teich) 50.5 ml SI(Teich) 25.9 ml/m\S\2 SV(cubed) 57.1 ml SI(cubed) 29.3 ml/m\S\2 Ao root diam 3.4 cm Ao root area 9.0 cm\S\2 LA dimension 2.6 cm LA/Ao 0.77 LVOT diam 2.0 cm LVOT area 3.1 cm\S\2 Doppler Measurements and Calculations Ao V2 max 76.1 cm/sec Ao max PG 2.3 mmHg Ao max PG (full) 1.1 mmHg LEESA(V,A) 2.3 cm\S\2 LEESA(V,D) 2.3 cm\S\2 LV V1 max PG 1.2 mmHg LV V1 max 55.9 cm/sec PA V2 max 102.4 cm/sec PA max PG 4.2 mmHg PI max kleber 194.2 cm/sec PI max PG 15.1 mmHg PI dec slope 142.3 cm/sec\S\2 PI P1/2t 399.8 msec TR max lkeber 209.3 cm/sec
--- NOTE | 2016-10-09 14:45 | EXERCISE STRESS ECHO ---
*NOTICE TO RECEIVING LIBERTARIAN AGENCY This information is strictly Confidential and protected under [place] law. [place] law prohibits you from making any further disclosure of this information unless further disclosure is expressly permitted by the written consent of the person to whom it pertains or is authorized by law. A general authorization for the release of medical or other information is not sufficient for this purpose. Hospital accepts no responsibility if the information is made available to any other person, INCLUDING THE PATIENT. Interpretation Summary * Name: TONYA STEVENSON Study Date: 10/09/2016 09:58 AM BP: 96/71 mmHg * Patient Location: [facility] HR: 73 * : 1940 (M/d/yyyy) Gender: Male Height: 70 in * Age: 76 yrs Ethnicity: DC Weight: 170 lb * Ordering Physician: James Hill * Referring Physician: Lai Dumont * Performed By: Jana Chapman RCS * * Reason For Study: CHEST PAIN * BSA: 1.9 m2 * Technically difficult and limited study with poor acoustic apical stress images. * Exercise stress echo is borderline positive for inducible ischemia. * Left ventricular function remained unchanged with stress with reproduction of anginal symptoms at low level of exercise. * Exercise capacity is below average. * -- Conclusions -- * Ejection Fraction = 50-55%. * There is mild concentric left ventricular hypertrophy. * No significant valvular pathology. Procedure Details * ECHOEX, CPT #[id number] * ECHO COLOR FLOW, CPT #[id number] * ECHO DOPPLER, CPT #[id number] * The study was technically difficult with many images being suboptimal in quality. * A contrast injection of Definity was performed to improve assessment of LV function. * Contrast was injected into an intravenous site in the right arm. * One vial of Definity ultrasound contrast was diluted in normal saline to a total volume of 10 ml. A total of '5' ml of solution was administered during imaging. * Lot # [id number] of Definity utilized for procedure. * Expiration date OCT 05. * The attending nurse who injected the contrast agent was OCTAVIANO MCKNIGHT CPL, RN. Left Ventricle * The left ventricle is normal in size. * There is mild concentric left ventricular hypertrophy. * Ejection Fraction = 50-55%. * There is borderline global hypokinesis of the left ventricle. Atria * The left atrium is mildly dilated. * Right atrial size is normal. * A patent foramen ovale is suspected. Mitral Valve * The mitral valve anatomy is normal. * There is no mitral valve stenosis. * Significant mitral regurgitation is absent. Tricuspid Valve * The tricuspid valve anatomy is normal. * There is no tricuspid stenosis. * There is trace tricuspid regurgitation. Aortic Valve * The aortic valve is not well visualized. * No hemodynamically significant valvular aortic stenosis. * No aortic regurgitation is present. Pulmonic Valve * The pulmonary valve is inadequately visualized, but the Doppler data is adequate for interpretation. * Trace pulmonic valvular regurgitation. Great Vessels * The aortic root is normal size. Pericardium * There is no pericardial effusion. Stress Parameters * The baseline ECG displays normal sinus rhythm. * Stress ECG: no signficant ST changes with occasional PVC's and ventricular couplets at higher levels of exertion. * The stress portion of this study was personally supervised by the undersigned interpreting physician. * Rest heart rate was '73' BPM. * Rest blood pressure was '96/71' * Maximum heart rate was 86 % of maximum age-predicted heart rate. * Maximum blood pressure was '125/78' * Maximum heart rate achieved was 127 bpm. * Total exercise time was '04:01' * Maximum exercise MET level achieved was '5.80' METS * Maximum treadmill speed was '2.50' miles per hour. * Maximum treadmill elevation was '12.00'% grade. * Normal blood pressure response to exercise. MMode 2D Measurements and Calculations IVSd 1.2 cm IVSs 1.4 cm LVIDd 4.5 cm LVIDs 3.2 cm LVPWd 1.2 cm LVPWs 1.3 cm IVS/LVPW 0.98 FS 28.6 % EDV(Teich) 91.4 ml ESV(Teich) 40.9 ml EF(Teich) 55.3 % EDV(cubed) 89.8 ml ESV(cubed) 32.7 ml EF(cubed) 63.6 % % IVS thick 23.2 % % LVPW thick 10.8 % LV mass(C)d 187.5 grams LV mass(C)dI 96.3 grams/m\S\2 LV mass(C)s 145.4 grams LV mass(C)sI 74.6 grams/m\S\2 SV(Teich) 50.5 ml SI(Teich) 25.9 ml/m\S\2 SV(cubed) 57.1 ml SI(cubed) 29.3 ml/m\S\2 Ao root diam 3.4 cm Ao root area 9.0 cm\S\2 LA dimension 2.6 cm LA/Ao 0.77 LVOT diam 2.0 cm LVOT area 3.1 cm\S\2 Doppler Measurements and Calculations Ao V2 max 76.1 cm/sec Ao max PG 2.3 mmHg Ao max PG (full) 1.1 mmHg LEESA(V,A) 2.3 cm\S\2 LEESA(V,D) 2.3 cm\S\2 LV V1 max PG 1.2 mmHg LV V1 max 55.9 cm/sec PA V2 max 102.4 cm/sec PA max PG 4.2 mmHg PI max kleber 194.2 cm/sec PI max PG 15.1 mmHg PI dec slope 142.3 cm/sec\S\2 PI P1/2t 399.8 msec TR max kleber 209.3 cm/sec
--- NOTE | 2016-10-09 15:22 | Discharge Summary ---
Discharge Summary Date of Service Oct 09, 2016. Discharge Summary Admission Date: Oct 08, 2016 at 13:40 Discharge Date: Oct 09, 2016 Discharge Disposition: Acute care facility Principal Diagnosis: Symptomatic CAD with H/O CABG and Positive DSE Secondary Diagnoses/Problems: Please see H&P and Hospital progress note Procedures: DSE Consultations: Cardiology Admission Information HPI (per Admitting provider): Patient is a 76 yr male with PMH of CAGB S/P stents X 2, Insomnia presents for evaluation of intermittent chest pain. Patient and her daughter reports that chest pain has been going on since last 11/2 years. Chest pain has been worsening lately. Pain is left sided, pressure like, intermittent, increases with exertion and decreases with rest, 3/10 intensity, non radiating. Associated with SOB on exertion and I have heaviness in my head". Reports chest pain got worse last Saturday but was reluctant to come to ED. Chest improved with NTG given in ED. Denies orthopnea, PND, leg swelling, abd pain, diarrhea, fever , chills, cough. Reports having a nightmares lately. Past Medical/Surgical History H/O CAD S/P CABG, stents X2 Family History Reviewed Social History Smoking Status: Former Smoker Alcohol Use: none Marital Status: Occupational Status: retired Allergies Coded Allergies: Oxazepam (Unverified Allergy, Unknown, ., 10/08/16) Home Medications Scheduled Aspirin (Aspirin Ec), 81 MG PO DAILY Atorvastatin (Atorvastatin Calcium), 10 MG PO DAILY Lorazepam (Ativan), 2 MG PO HS Prazosin Hcl (Prazosin), 1 MG PO DAILY Pregabalin (Lyrica), 75 MG PO BID Review of Systems See HPI for pertinent positives & negatives. A total of 10 systems reviewed and were otherwise negative. Physical Ex - H&P Physical Exam Vital Signs Date Time Temp Pulse Resp B/P (MAP) Pulse Ox O2 Delivery O2 Flow Rate FiO2 10/08/16 13:22 68 10/08/16 12:32 59 19 93 10/08/16 12:02 64 20 95 10/08/16 12:00 106/69 10/08/16 11:32 71 17 95 10/08/16 11:27 70 24 96 10/08/16 11:00 100/71 10/08/16 10:57 67 13 94 10/08/16 10:27 73 13 95 10/08/16 10:21 70 10/08/16 10:11 109/69 10/08/16 10:10 99 Room Air 10/08/16 10:06 95 Room Air 10/08/16 10:01 36.5 90 17 113/76 95 Room Air General Appearance: WD/WN, no apparent distress Head: normocephalic, atraumatic Eyes: normal inspection, PERRL, EOMI ENT: normal ENT inspection, hearing grossly normal Neck: supple, trachea midline Respiratory/Chest: chest non-tender, lungs clear, normal breath sounds, no respiratory distress, no accessory muscle use Cardiovascular: regular rate, rhythm, no edema, no murmur Abdomen/GI: normal bowel sounds, non tender, soft Back: normal inspection Extremities/Musculoskelatal: normal inspection, no pedal edema 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, no motor/sensory deficits, alert, normal mood/affect, normal reflexes, oriented x 3 Skin: normal color, warm/dry Diagnostics - H&P Diagnostics Laboratory Results Results Past 24 Hours Test 10/08/16 10:15 10/08/16 10:27 Range/Units White Blood Count 5.58 4.8-10.8 K/uL Red Blood Count 4.60 4.7-6.1 M/uL Hemoglobin 14.2 14.0-18.0 g/dL Hematocrit 42.0 42-52 % Mean Corpuscular Volume 91.3 80-100 fL Mean Corpuscular Hemoglobin 30.9 25-34 pg Mean Corpuscular Hemoglobin Concent 33.8 32-36 g/dl RDW Standard Deviation 44.9 36.4-46.3 fL RDW Coefficient of Variation 13.4 11.5-14.5 % Platelet Count 215 130-400 K/uL Mean Platelet Volume 8.4 7.4-10.4 fL Prothrombin Time 11.1 9.0-12.0 SECONDS Prothromb Time International Ratio 1.0 0.9-1.1 Activated Partial Thromboplast Time 27.8 21.0-31.0 SECONDS Partial Thromboplastin Ratio 1.1 Sodium Level 141 136-145 mmol/L Potassium Level 4.2 3.5-5.1 mmol/L Chloride Level 108 98-107 mmol/L Carbon Dioxide Level 29 21-32 mmol/L Anion Gap 4.0 3-11 mmol/L Blood Urea Nitrogen 13 7-18 mg/dl Creatinine 0.92 0.60-1.40 mg/dl Est Creatinine Clear Calc Drug Dose 72.7 ml/min Estimated GFR () 94.6 Estimated GFR (Non- 81.6 BUN/Creatinine Ratio 13.9 10-20 Random Glucose 88 70-99 mg/dl Calcium Level 8.4 8.5-10.1 mg/dl Total Bilirubin 0.8 0.2-1 mg/dl Aspartate Amino Transf (AST/SGOT) 22 15-37 U/L Alanine Aminotransferase (ALT/SGPT) 28 12-78 U/L Alkaline Phosphatase 109 45-117 U/L Total Creatine Kinase 56 39-308 U/L Creatine Kinase MB < 0.5 0.5-3.6 ng/ml Creatine Kinase MB Ratio 0-3.0 Pro-B-Type Natriuretic Peptide 80 0-900 pg/ml Total Protein 7.0 6.4-8.2 gm/dl Albumin 3.7 3.4-5.0 gm/dl Globulin 3.3 2.5-4.0 gm/dl Albumin/Globulin Ratio 1.1 0.9-2 Bedside Troponin I < 0.030 0-0.045 ng/ml Diagnostic Radiology CXR: Subsegmental left basilar atelectasis with otherwise unremarkable exam. EKG EKG:NSR, Low voltage, LAFB Impression - H&P Impression Assessment and Plan Chest Pain: R/O ACS Risk factors: H/O CAD S/P CABG, Stents X2, Former tobacco use disorder Initial troponin:Negative EKG shows:No acute signs of Ischemia CXR: Unremarkable Last ECHO in 2009: EF:45-50% Trend serial cardiac enzymes, repeat EKG, fasting lipid panel in AM Continue Aspirin, statins Oxygen PRN Update ECHO Cardiology consulted H/O Insomnia: continue home meds Former Tobacco use disorder DVT Px: SCDs Disposition: Monitor in Tele VTE Prophylaxis VTE Risk Assessment Done? 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 * Exercise stress echo is borderline positive for inducible ischemia. * Left ventricular function remained unchanged with stress with reproduction of anginal symptoms at low level of exercise. * Exercise capacity is below average. * -- Conclusions -- * Ejection Fraction = 50-55%. * There is mild concentric left ventricular hypertrophy. * No significant valvular pathology. Continue Aspirin, statins Appreciate Cardiology Input [employer] C[employer] Developer discussed the case with Dr Sanders in [place] and the patient was transferred to [facility] [place] for Cardiac Cath and possible Bypass Sx H/O CAD S/P CABG: As above May need to add a beta nilsa and increase statin dosage prior to discharge A1C:5.9 Lipid panel, TSH:Noted and Reasonable Cholesterol with Normal TSH H/O Insomnia: continue home meds Former Tobacco use disorder DVT Px: SCDs Total time spent on discharge = This includes examination of the patient, discharge planning, medication reconciliation, and communication with other providers. Discharge Instructions Transferred to [facility] [place] and all of the Inpatient medications were continued.
[2016-10-09 16:19] VITALS: BP 102/68; PULSE 73; TEMP 36.6; O2SAT 96
[2016-10-09 19:59] VITALS: BP 111/73; PULSE 70; TEMP 36.5; O2SAT 96
[2016-10-09 20:00] VITALS: O2SAT 96
[2016-10-09] MEDS: LORAZEPAM 2 MG TAB PO SCH (21:29)
[2016-10-10] VITALS: BP 115/69; PULSE 86; TEMP 36.5; O2SAT 96
[2016-10-10] MEDS: NITROGLYCERIN OINT 2% 1GM PACKET EXT SCH
[2016-10-10 02:03] VITALS: BP 115/69; PULSE 86; TEMP 36.5; O2SAT 96
--- NOTE | 2016-10-18 13:15 | EDITING REQUIRED CODING QUERY ---
SUPPORTING DIAGNOSIS NEEDED A supporting diagnosis is required for the test/procedure performed on this patient in order for us to be reimbursed by the patient's insurance. Please provide a supporting diagnosis for the following test/procedure listed below next to the test name along with your signature. *If there is no additional diagnosis for this patient that would support the following test/procedure please document that below next to the test/procedure. Test(s)/Procedure(s) that require a supporting diagnosis: * HEMOGLOBIN A1C DIAGNOSIS:R/O Diabetes,Diabetic control Provider Signature: datta Date: ____10/19/16___ Thank you Malia Sinclair [employer] Once completed, please kindly fax back to [phone] For questions please call [phone]
== END 2016-10-10 01:50 | disposition short-term general hospital (02) ==
LOC: C.EDB 09:59 → C.2T 13:40 → ENRESERV 13:56
PROVIDERS: ADMIT Internal Medicine; ATTEND Internal Medicine
DX: R07.9 Chest pain, unspecified (principal); Z95.5 Presence of coronary angioplasty implant and graft; Z87.891 Personal history of nicotine dependence; Z79.82 Long term (current) use of aspirin; G47.00 Insomnia, unspecified; I25.10 Atherosclerotic heart disease of native coronary artery without angina pectoris; E78.5 Hyperlipidemia, unspecified; K21.9 Gastro-esophageal reflux disease without esophagitis